=== PATIENT | female | born 1940 | race African-American/Black ===

== ENCOUNTER 2017-03-10 17:35 | Emergency (ER) | payer OTHER ==
[~2017-03-10 17:35] MED LIST: APRES25 PO; ASAB PO; CARDCD180 PO; CARTIA XT180 MG/24 PO; CLARIT10 PO; COZ50 PO; CYANO1000T PO; HYZAAR 100/25 T1 TAB PO; HYZAAR 50/12.51 TAB PO; IMDUR30 PO; IRON PO; IRON325 MG PO; LIPITOR80 MG PO; LISINOPRIL40 MG PO; NORV10 PO; PROTONIX PO; RENVELA800 MG PO; ROCALTROL 0.0.25 MCG PO; SODBICAR10 PO; TEKTUR150 PO; VITAMIN D1000 UNI1 PO; Z100 PO; ZESTRIL20 MG PO; ZOCOR20 PO
[2017-03-10 18:17] LABS: BASOPHILS 0.9 %; BASOPHILS ABSOLUTE 0.07 10/3/uL (0.0-0.16); EOSINOPHILS 3.9 %; EOSINOPHILS ABSOLUTE 0.29 10/3/uL (0.0-0.53); ER CBC TAT 0 Hrs 11 Mins; HEMOGLOBIN 8.5 g/dL (12.0-16.0); IMMATURE GRANULOCYTES 0.3 %; IMMATURE GRANULOCYTES ABSOLUTE 0.02 10/3/uL (0.0-0.11); LYMPHOCYTES 34.7 %; LYMPHOCYTES ABSOLUTE 2.56 10/3/uL (0.67-4.30); MEAN CORPUS HGB CONC 32.8 g/dL (32.0-36.0); MEAN CORPUSCULAR HEMOGLOB 32.4 pg (26.0-34.0); MEAN CORPUSCULAR VOLUME 98.9 fL (80-100); MEAN PLATELET VOLUME 9.6 fL (9.2-13.0); MONOCYTES 8.1 %; NEUTROPHILS 52.1 %; NEUTROPHILS ABSOLUTE 3.83 10/3/uL (2.02-8.40); PLATELET COUNT 365 10/3/uL (150-400); RED CELL COUNT 2.62 10/6/uL (4.0-5.6); WHITE BLOOD CELLS 7.4 10/3/uL (4.5-10.5)
[2017-03-10 18:18] LABS: HEMATOCRIT 25.9 % (36.0-48.0); MANUAL DIFF NO %; RBC DISTRIBUTION WIDTH 18.7 % (12.0-16.0)
[2017-03-10 18:24] LABS: PARTIAL THROMBO TIME 31.8 SEC (22.5-37.2)
[2017-03-10 18:35] LABS: CHEST PAIN PROFILE TAT 0 Hrs 29 Mins; CHLORIDE, SERUM 99 MMOL/L (96-112); GLUCOSE, SERUM 99 MG/DL (60-99); POTASSIUM, SERUM 4.4 MMOL/L (3.5-5.3); SODIUM, SERUM 136 MMOL/L (135-148); TROPONIN I <0.02 NG/ML (<0.05)
[2017-03-10 18:36] LABS: BUN (BLOOD UREA NITROGEN) 22 MG/DL (6-23); CALCIUM, SERUM 10.2 MG/DL (8.5-10.4); CO2 (CARBON DIOXIDE) 31 MMOL/L (24-34); CREATININE 6.93 MG/DL (0.55-1.02); GFR AFRICAN AMERICAN 6 ML/MIN (>=60); GFR NON AFRICAN AMERICAN 5 ML/MIN (>=60)
== END 2017-03-10 22:07 | disposition home or self-care (01) ==
LOC: ER 17:35
PROVIDERS: Emergency Medicine
DX: R06.00 Dyspnea, unspecified (principal); R09.89 Other specified symptoms and signs involving the circulatory and respiratory systems; I12.0 Hypertensive chronic kidney disease with stage 5 chronic kidney disease or end stage renal disease; N18.6 End stage renal disease; D64.9 Anemia, unspecified; J45.909 Unspecified asthma, uncomplicated; I25.10 Atherosclerotic heart disease of native coronary artery without angina pectoris; Z87.01 Personal history of pneumonia (recurrent); Z79.82 Long term (current) use of aspirin; Z79.899 Other long term (current) drug therapy
CPT/HCPCS: 71020; 80048; 83735; 84484; 85025; 85610; 85730; 93005; 99285